=== PATIENT | male | born 1985 | race Two or more races ===

== ENCOUNTER 2022-10-18 16:45 | Emergency (ER) | payer OTHER ==
[~2022-10-18] VITALS: Ht 182.9 cm; Wt 74.4 kg
--- NOTE | 2022-10-18 20:30 | NUR ---
TO ER BED 10
--- NOTE | 2022-10-18 20:30 | NUR ---
LISA FOR MID-UMBICAL NONRAD ABD PAIN SINCE 0900 WITH ONE EPISODE OF VOMITING AT 1430. PT RATES PAIN 7/10 INTERMITTENT AND SHARP. -DYSURIA/HEMATURIA. PT AWAKE AND ALERT X4 BREATHING UNLBAORED HOOKED TO MONITOR AND CHANGED INOT GOWN. V/S WNL.
--- NOTE | 2022-10-18 20:32 | NUR ---
20G IV STARTED AT . BLOOD DRAWN AND SENT TO LAB
[2022-10-18] MEDS ORDERED: ONDANSETRON HCL/PF 4 MG/2 ML VIAL ONE (20:52)
[2022-10-18] MEDS ORDERED: MORPHINE SULFATE INJ 4 MG/ML DISP.SYRIN ONE (20:53)
[2022-10-18] MEDS: ONDANSETRON HCL/PF - ER 4 MG/2 ML VIAL IV ONE (20:58)
[2022-10-18] MEDS: IV NS 0.9% 1,000 ML IV ONE (20:58)
[2022-10-18] MEDS: MORPHINE SULFATE INJ 2 MG/ML DISP.SYRIN IV ONE (20:58)
--- NOTE | 2022-10-18 20:59 | NUR ---
URINE SENT TO LAB
--- NOTE | 2022-10-18 20:59 | NUR ---
PT TAKEN TO CT
[2022-10-18 21:01] LABS: BASOPHILS % (AUTO) 0.2 % (0.0-2.0); HEMATOCRIT 45 % (39-51); HEMOGLOBIN 15.3 g/dL (13.5-17.5); LYMPHOCYTES # (AUTO) 1.1 K/uL (0.8-4.8); MEAN CORPUSCULAR HGB CONC 34 g/dl (31.0-36.0); MEAN CORPUSCULAR VOLUME 95 fL (80-96); MONOCYTES # (AUTO) 1.2 K/uL (0.1-1.30); MONOCYTES % (AUTO) 6.4 % (2.0-12.0); NEUTROPHILS # (AUTO) 15.9 K/uL (1.8-8.9); NEUTROPHILS % (AUTO) 87.4 % (43.0-81.0); PLATELET COUNT (AUTO) 304 K/uL (150-450); WHITE BLOOD COUNT (AUTO) 18.2 K/uL (4.3-11.0)
[2022-10-18 21:25] LABS: ALBUMIN 4.3 g/dL (3.4-5.0); BILIRUBIN,DIRECT 0.1 mg/dL (0.0-0.2); BILIRUBIN,TOTAL 0.6 mg/dL (0.2-1.0); CALCIUM, SERUM 8.9 mg/dL (8.5-10.1); TOTAL PROTEIN, SERUM 7.7 g/dL (6.4-8.2)
[2022-10-18 22:03] LABS: BILIRUBIN,URINE NEGATIVE (NEGATIVE); COLOR,URINE YELLOW (YELLOW); LEUKOCYTE ESTERASE ,URINE NEGATIVE (NEGATIVE); NITRITE, URINE POSITIVE (NEGATIVE); PH,URINE 5.5 (5.0-8.0); PROTEIN,URINE NEGATIVE (NEGATIVE); UGLUCOSE NEGATIVE (NEGATIVE)
[2022-10-18 22:34] LABS: BACTERIA,URINE RARE /HPF (None Seen); MUCUS,URINE Few /LPF (None Seen); RBC,URINE 0-2 /HPF (0-2); SQUAMOUS EPITHELIAL CELL,UR 0-2 /HPF (None Seen); WBC,URINE 0-2 /HPF (0-3)
[2022-10-18] MEDS ORDERED: KETOROLAC TROMETHAMINE 15 MG/ML VIAL ONE (23:01)
[2022-10-18] MEDS: KETOROLAC TROMETHAMINE INJ 30 MG/ML VIAL IV ONE (23:07)
[2022-10-18] MEDS ORDERED: IBUP-1957 PO (23:18)
[2022-10-18] MEDS ORDERED: AZIT500T4 PO (23:18)
[2022-10-18] MEDS ORDERED: AZITHROMYCIN 250 MG TABLET ONE (23:22)
[2022-10-18] MEDS: AZITHROMYCIN 250 MG TABLET PO ONE (23:26)
--- NOTE | 2022-10-18 23:26 | NUR ---
Patient discharged to home in stable condition. Written and verbal after care instructions given. Patient verbalizes understanding of instruction.IV removed. Catheter intact and site benign. Pressure and 4x4 applied to site. No bleeding noted.
[2022-10-18 23:29] VITALS: BP 120/72
[2022-10-28] MEDS ORDERED: ONDA4TAB5 PO (14:23)
[2022-10-28] MEDS ORDERED: HYDR-3972 PO (14:23)
[2022-10-28] MEDS ORDERED: AMOX-430 PO (14:23)
== END 2022-10-18 23:38 | disposition home or self-care (01) ==
LOC: ER 16:49
DX: K52.9 Noninfective gastroenteritis and colitis, unspecified (principal); R10.31 Right lower quadrant pain; Z79.899 Other long term (current) drug therapy
CPT/HCPCS: 99284; 74176; 96374; 96361; 96375; 85025; 80048; 87086; 83690; 80076; 81001; 36415; J2270; J2405; J7030; J1885

== ENCOUNTER 2022-10-20 21:36 | Inpatient (IN) | payer OTHER ==
[~2022-10-20] VITALS: Ht 182.9 cm; Wt 75.7 kg
[~2022-10-20 21:36] MED LIST: AZIT500T4 PO; IBUP-1957 PO
--- NOTE | 2022-10-20 23:49 | NUR ---
BIBS C/O ABD PAIN. WAS DIAGNOSED WITH COLITIS ON 10/18 AND FINISGHED HIS COURSE OF ABX WITH NO IMPROVEMENT. RATES PAIN 07/31. -N/V -BLOODY STOOL. STATES HE IS USUALLY CONSTIPATED BUT WHEN HE IS ABLE TO GO HIS STOOLS HAVE BEEN LOOSE. PT AFEBRILE AHND V/S WNL.
[2022-10-21] MEDS ORDERED: IV NS 0.9% 1,000 ML BAG IV ONE
[2022-10-21] MEDS ORDERED: ONDANSETRON HCL/PF 4 MG/2 ML VIAL IVP ONE
[2022-10-21] MEDS ORDERED: MORPHINE SULFATE INJ 4 MG/ML DISP.SYRIN ONE ×4 (00:09→09:49)
[2022-10-21] MEDS ORDERED: ONDANSETRON HCL/PF 4 MG/2 ML VIAL ONE (00:09)
--- NOTE | 2022-10-21 00:14 | NUR ---
20G IV STARTED AT . BLOOD DRAWN AND SENT TO LAB
[2022-10-21 00:15] LABS: BASOPHILS % (AUTO) 0.2 % (0.0-2.0); EOSINOPHILS % (AUTO) 0.2 % (0.0-6.0); HEMATOCRIT 41 % (39-51); HEMOGLOBIN 13.8 g/dL (13.5-17.5); LYMPHOCYTES # (AUTO) 1.1 K/uL (0.8-4.8); LYMPHOCYTES % (AUTO) 5.4 % (20.0-44.0); MEAN CORPUSCULAR HGB CONC 34 g/dl (31.0-36.0); MEAN CORPUSCULAR VOLUME 95 fL (80-96); MONOCYTES # (AUTO) 2.6 K/uL (0.1-1.30); MONOCYTES % (AUTO) 12.6 % (2.0-12.0); NEUTROPHILS # (AUTO) 16.7 K/uL (1.8-8.9); NEUTROPHILS % (AUTO) 81.6 % (43.0-81.0); PLATELET COUNT (AUTO) 243 K/uL (150-450); RED BLOOD CELL COUNT(AUTO) 4.27 MIL/uL (4.5-6.0); WHITE BLOOD COUNT (AUTO) 20.5 K/uL (4.3-11.0)
[2022-10-21] MEDS ORDERED: PIPERACILLIN /TAZOBACTAM 3.375 G in IV D5W 50 ML IV ONE (00:30)
[2022-10-21] MEDS ORDERED: CT SWABBABLE VALVE TRANS SET 1 EA INFUS.SET MC ONE (00:43)
[2022-10-21] MEDS ORDERED: IOHEXOL-300 100 ML VIAL IV ONE (00:43)
[2022-10-21] MEDS ORDERED: IV NS 0.9% 250 ML IV ONE (00:43)
[2022-10-21 00:44] LABS: CALCIUM, SERUM 8.7 mg/dL (8.5-10.1); CREATININE 1.1 mg/dL (0.6-1.3); POTASSIUM 3.6 mmol/L (3.5-5.1)
--- NOTE | 2022-10-21 00:47 | NUR ---
PT TAKEN TO CT VIA ROBBIE
[2022-10-21 01:06] LABS: ALBUMIN 3.6 g/dL (3.4-5.0); BILIRUBIN,DIRECT 0.2 mg/dL (0.0-0.2); BILIRUBIN,TOTAL 0.6 mg/dL (0.2-1.0); TOTAL PROTEIN, SERUM 7.3 g/dL (6.4-8.2)
[2022-10-21] MEDS ORDERED: PIPERACILLIN /TAZOBACTAM 3.375 G VIAL IV ONE (01:19)
[2022-10-21] MEDS ORDERED: MORPHINE SULFATE INJ 2 MG/ML DISP.SYRIN IV ONE ×2 (01:30)
[2022-10-21] MEDS ORDERED: FLAGYL/NS RTU 500 MG/100 ML PIGGYBACK IV ONE (02:30)
--- NOTE | 2022-10-21 02:34 | NUR ---
LAB CONFIRMED URINE SAMPLE RECIEVED
[2022-10-21] MEDS ORDERED: METRONIDAZOLE 500MG/ NS 100ML 100 ML IV ONE (02:38)
[2022-10-21] MEDS ORDERED: MAG HYDROX/AL HYDROX/SIMETH 30 ML UDC PO PRN ×2 (04:00→11:30)
[2022-10-21] MEDS ORDERED: Z GUARD REMEDY 4 OZ OINT TP PRN ×2 (04:00→11:30)
[2022-10-21] MEDS ORDERED: ZOLPIDEM TARTRATE 5 MG TABLET PO PRN (04:00)
[2022-10-21] MEDS ORDERED: ACETAMINOPHEN 325 MG TABLET PO PRN ×2 (04:00→11:30)
--- NOTE | 2022-10-21 05:18 | NUR ---
CLERICAL ASSIGNER AT PT BESIDE
[2022-10-21] MEDS: MORPHINE SULFATE INJ 2 MG/ML DISP.SYRIN IV PRN ×4 (05:29→21:00)
[2022-10-21 06:44] LABS: CALCIUM, SERUM 7.8 mg/dL (8.5-10.1); CREATININE 1.1 mg/dL (0.6-1.3); MAGNESIUM 1.9 mg/dL (1.8-2.4); POTASSIUM 3.5 mmol/L (3.5-5.1)
--- NOTE | 2022-10-21 07:18 | NUR ---
REPORT GIVEN TO KVNG ESPINAL
[2022-10-21 07:35] LABS: BASOPHILS % (AUTO) 0.1 % (0.0-2.0); EOSINOPHILS % (AUTO) 0.2 % (0.0-6.0); HEMATOCRIT 38 % (39-51); HEMOGLOBIN 13.2 g/dL (13.5-17.5); LYMPHOCYTES % (AUTO) 6.2 % (20.0-44.0); MEAN CORPUSCULAR HGB CONC 35 g/dl (31.0-36.0); MEAN CORPUSCULAR VOLUME 95 fL (80-96); MONOCYTES # (AUTO) 2.2 K/uL (0.1-1.30); MONOCYTES % (AUTO) 13.2 % (2.0-12.0); NEUTROPHILS # (AUTO) 13.2 K/uL (1.8-8.9); NEUTROPHILS % (AUTO) 80.3 % (43.0-81.0); PLATELET COUNT (AUTO) 238 K/uL (150-450); RED BLOOD CELL COUNT(AUTO) 3.95 MIL/uL (4.5-6.0); WHITE BLOOD COUNT (AUTO) 16.4 K/uL (4.3-11.0)
--- NOTE | 2022-10-21 08:05 | NUR ---
Radha gaona in [facility]IN - 10/21/22 at 0949 by VASILIY REPORT GIVEN TO HOLLY MARCIAL
--- NOTE | 2022-10-21 08:38 | NUR ---
CORRECTION : NO AVAILABLE BED YET *
[2022-10-21] MEDS ORDERED: PIPERACILLIN /TAZOBACTAM 4.5 G in IV D5W 50 ML IV SCH (09:00)
[2022-10-21] MEDS ORDERED: PANTOPRAZOLE 40 MG VIAL ONE (09:05)
[2022-10-21] MEDS: PANTOPRAZOLE 40 MG VIAL IV SCH (09:12)
[2022-10-21] MEDS: PIPERACILLIN /TAZOBACTAM 3.375 G in IV D5W 100 ML IV SCH ×2 (10:25→17:04)
--- NOTE | 2022-10-21 11:15 | NUR ---
322-2 ASSIGNED BED CHANGED
--- NOTE | 2022-10-21 11:19 | NUR ---
REPORT GIVEN TO MIKE CALDERON
[2022-10-21] MEDS ORDERED: MORPHINE SULFATE INJ 2 MG/ML DISP.SYRIN IV PRN (11:30)
[2022-10-21] MEDS ORDERED: IV NS 0.9% 1,000 ML IV PRN (11:30)
[2022-10-21] MEDS ORDERED: MAGNESIUM HYDROXIDE 30 ML UDC PO PRN (11:30)
[2022-10-21] MEDS ORDERED: ONDANSETRON HCL/PF 4 MG/2 ML VIAL IVP PRN (11:30)
--- NOTE | 2022-10-21 11:55 | NUR ---
MS MANAGER BENEFIT NOTES: PT TRANSPORTED BY ER STAFF VIA GURNEY. PT ABLE TO SCOOT TO BED. PT IS AWAKE, A/0X4, ABLE TO MAKE NEEDS KNOWN, PARTNER AT BEDSIDE. NO S/S OF RESPIRATORY DISTRESS ON RA, BREATHING EVEN AND UNLABORED. VITALS WNL, PT C/O PAIN 04/30, WILL MEDICATE ORDERED. IV ACCESS AT R FA #20, SL, INTACT. NO SKIN ISSUES NOTED. ORIENTED TO STAFF AND UNIT, GIVEN CALL LIGHT AND ENCOURAGED TO CALL FOR ASSISTANCE. SAFETY MEASURES IN PLACE, CALL LIGHT, TABLE AND URINAL WITHIN REACH, WILL CONT WITH PLAN OF CARE DURING SHIFT.
--- NOTE | 2022-10-21 12:00 | NUR ---
PATIENT MOVED TO INPATIENT ROOM SAFELY
[2022-10-21] MEDS: HYDROCODONE/APAP 5/325MG TABLET PO PRN ×2 (12:07→18:44)
[2022-10-21] MEDS: IV NS 0.9% 1,000 ML IV PRN (12:23)
[2022-10-21 16:00] VITALS: BP 110/56
[2022-10-21] MEDS ORDERED: NA PHOS,M-B/NA PHOS,DI-BA 1 EA ENEMA RC PRN (19:30)
[2022-10-21 20:00] VITALS: BP 105/56
--- NOTE | 2022-10-21 20:08 | NUR ---
RN OPENING NOTE PATIENT AWAKE IN HIS ROOM W/ PARTNER AT BEDSIDE. A/OX4. NO S/S OF DISTRESS, BREATHING WITHOUT DIFFICULTY ON ROOM AIR. RFA #20 INTACT AND PATENT W/ NS 100ML/HR. SAFETY MEASURES IN PLACE: BED LOCKED AND AT LOWEST POSITION, RAILS UP X2, CALL [place] WITHIN REACH. WILL CONTINUE TO MONITOR PATIENT.
--- NOTE | 2022-10-21 20:09 | NUR ---
MS RN CLOSING NOTESl PT IS AWAKE, A/0X4, ABLE TO MAKE NEEDS KNOWN, PARTNER AT BEDSIDE. NO S/S OF RESPIRATORY DISTRESS ON RA, BREATHING EVEN AND UNLABORED. IV ACCESS AT R FA #20, RUNNING NS @ 100ML/HR. ALL NEEDS MET, KEPT PT COMFORTABLE, PAIN MANAGEMENT ADMINISTERED NEEDED. GIVEN CALL LIGHT AND ENCOURAGED TO CALL FOR ASSISTANCE. SAFETY MEASURES IN PLACE, CALL LIGHT, TABLE AND URINAL WITHIN REACH, ENDORSED TO PM SHIFT.
[2022-10-22] MEDS: MORPHINE SULFATE INJ 2 MG/ML DISP.SYRIN IV PRN ×4 (01:02→19:22)
[2022-10-22] MEDS: PIPERACILLIN /TAZOBACTAM 3.375 G in IV D5W 100 ML IV SCH ×3 (02:33→19:21)
[2022-10-22] MEDS: IV NS 0.9% 1,000 ML IV PRN (04:31)
[2022-10-22 06:03] LABS: BASOPHILS % (AUTO) 0.2 % (0.0-2.0); EOSINOPHILS % (AUTO) 1.4 % (0.0-6.0); HEMATOCRIT 36 % (39-51); HEMOGLOBIN 12.5 g/dL (13.5-17.5); LYMPHOCYTES # (AUTO) 1.5 K/uL (0.8-4.8); LYMPHOCYTES % (AUTO) 9.5 % (20.0-44.0); MEAN CORPUSCULAR HGB CONC 34 g/dl (31.0-36.0); MEAN CORPUSCULAR VOLUME 95 fL (80-96); MONOCYTES # (AUTO) 2.2 K/uL (0.1-1.30); MONOCYTES % (AUTO) 13.5 % (2.0-12.0); NEUTROPHILS # (AUTO) 12.1 K/uL (1.8-8.9); NEUTROPHILS % (AUTO) 75.4 % (43.0-81.0); PLATELET COUNT (AUTO) 237 K/uL (150-450); RED BLOOD CELL COUNT(AUTO) 3.84 MIL/uL (4.5-6.0)
[2022-10-22 06:40] LABS: CALCIUM, SERUM 7.8 mg/dL (8.5-10.1); MAGNESIUM 1.8 mg/dL (1.8-2.4); PHOSPHORUS 3.2 mg/dL (2.5-4.9); POTASSIUM 3.4 mmol/L (3.5-5.1)
--- NOTE | 2022-10-22 06:54 | NUR ---
RN CLOSING NOTE PATIENT AWAKE IN BED. A/O X 4. NO S/S OF DISTRESS, BREATHING WITHOUT DIFFICULTY ON ROOM AIR. RFA #20 INTACT AND PATENT W/ NS 100ML/HR. SAFETY MEASURES IN PLACE: BED LOCKED AND AT LOWEST POSITION, RAILS UP X2, CALL [place] WITHIN REACH. WILL ENDORSE TO NEXT SHIFT FOR AGGIE.
[2022-10-22 08:00] VITALS: BP 105/65
[2022-10-22] MEDS: PANTOPRAZOLE 40 MG VIAL IV SCH (08:44)
[2022-10-22] MEDS: HYDROCODONE/APAP 5/325MG TABLET PO PRN (08:53)
[2022-10-22] MEDS ORDERED: NA PHOS,M-B/NA PHOS,DI-BA 1 EA ENEMA RC PRN (10:30)
--- NOTE | 2022-10-22 10:39 | NUR ---
RN NOTES AM RECEIVED PATIENT ASLEEP IN BED, EASY TO AROUSE, A/OX4, NO SOB, NO S/S OF DISTRESS, BREATHING WITHOUT DIFFICULTY ON ROOM AIR. SAT AT 99 %, IV SITE INTACT, FLUSHING WELL, RFA #20 INTACT AND PATENT W/ NS 100ML/HR. SAFETY MEASURES IN PLACE & BED WHEELS ARE ALL LOCKED BED AT LOWEST POSITION, RAILS UP X2, CALL LIGHT IS WITHIN REACH. FLEET ENEMA GIVEN PER MD ORDER , BM X2 ONE WAS EXTRA LARGE, SECOND ONE WAS SMALL FORMED BROWN FOUL ODOR NOTED, DOUBLE ORDER OF ENEMA NOTED ON EMAR THERE FORE ONE ORDER WAS CANCELLED THE ORDER WAS NOT FOR TWO TO BE GIVEN, WILL CONTINUE TO MONITOR PATIENT.
--- NOTE | 2022-10-22 11:04 | NUR ---
RN NOTES PT TRANSFERED FOR SURGERY AT THIS TIME SAFE TRANSFER FROM BED IN [facility] TO SURGICAL TEAM ROOM FOR SCHEDULED PROCEDURE , ALL DOCUMENTS FILLED OUT AND ALL UPDATED VS GIVEN TO SURGICAL TRANSPORT TEAM AT THIS TIME.
[2022-10-22] MEDS ORDERED: MIDAZOLAM HCL 2 MG/2ML VIAL ONE (11:12)
[2022-10-22] MEDS ORDERED: FENTANYL PF 100MCG/2ML AMPUL ONE (11:43)
[2022-10-22] MEDS ORDERED: POTASSIUM CHLORIDE 20 MEQ TAB.PRT.SR PO ONE (12:00)
--- NOTE | 2022-10-22 15:02 | NUR ---
RN POST SURGERY NOTES PT C/O PAIN, COMMON AFTER THIS TYPE OF PROCEDURE AND NORMAL, ENCOURAGED TO PASS THE GAS, REPOSITIONED PT SEVERAL TIMES AND EDUCATED ON GUIDED IMAGERY TO TRY TO RELIEVE PAIN AND ANXIETY, PT C/O PAIN LEVEL OF 10 OUT OF 0-10 SCALE AND GIVEN MORPHINE TO HELP, EFFECTIVE, FIANCE AT BEDSIDE, MD ORDERED A CT AB / PELVIC EXAM AND PT ENCOURAGED TO ALLOW PROCESS TO RULE OUT ANY OTHER UNKNOWN FACTORS CAUSING SEVERE AB PAIN, PT UNABLE TO RELIEVE THE GAS AT THIS TIME - ENCOURAGED TO RELAX AND LET THE GAS PASS TO HELP RELEIVE THE TENSION AND TIGHTNESS IN THE AB REGION.
--- NOTE | 2022-10-22 15:36 | NUR ---
RN NOTES PT C/O SEVERE AB PAIN, PRIMARY MD CONTACTED AND GI MD DR. DIAZ - ORDER FOR STAT CT OF AB AND PELVIC AREA TO RULE OUT ANY ISSUES, RESULTS SHOW SITE HAS PERFORATED AND SURGICAL EVAL IS ORDERED STAT FOR SURGICAL DECISIONS TO BE MADE, PT NOTIFIED , VS BEING MONITORED CLOSELY AT THIS TIME VITAL SIGNS ARE THE FOLLOWING: TEMP AXILLARY LEFT ARM 99.1, B/P = 127/68, PULSE - 79 , OXYGEN 98% ROOM AIR, PT TO BE NPO AT THIS TIME UNTIL FURTHER ORDERS HOLDING ALL PO MEDS AND OTHER AT THIS TIME AND PLACING THAT ORDER INTO ORDER SCREEN AT THIS TIME.
--- NOTE | 2022-10-22 15:49 | NUR ---
abnormal ct abdomen result reported to Dr. Sevilla, he stated that Dr. falcon is informed and will evaluate pt.
--- NOTE | 2022-10-22 16:17 | NUR ---
RN NOTES MD LUCERO AT BED SIDE FOR EDUCATION AND EVALUATION GIVING PT OPTION ONE AND OPTION TWO. OPTION ONE IS SURGERY , OPTION TWO IS MEDICINE AND TREATMENT - WITH CLOSE OBSERVATION PT IS CHOOSING OPTION TWO AT THIS TIME, EDUCATED ON PROS AND CONS OF BOTH OPTIONS, VS = B/P - 122/71, PULSE - 84, TEMP = 97.9, RR = 18 , OXYGEN = 98% ROOM AIR, PT MADE COMFORTABLE, FAMILY AT BED SIDE, BLOOD CULTURES BEING DRAWN NOW , NS RUNNING IN RFA SITE IS PATENT FLUSING INTACT. WILL CONTINUE TO MONITOR CLOSELY
--- NOTE | 2022-10-22 20:03 | NUR ---
RN OPENING NOTE PATIENT AWAKE IN BED W/ PARTNER AT BEDSIDE. A/OX4. NO S/S OF DISTRESS, BREATHING WITHOUT DIFFICULTY ON ROOM AIR. RFA #20 INTACT AND PATENT W/ NS 100ML/HR. SAFETY MEASURES IN PLACE: BED LOCKED AND AT LOWEST POSITION, RAILS UP X2, CALL [place] WITHIN REACH. WILL CONTINUE TO MONITOR PATIENT.
[2022-10-23] MEDS: MORPHINE SULFATE INJ 2 MG/ML DISP.SYRIN IV PRN ×4 (00:59→15:20)
[2022-10-23] MEDS: PIPERACILLIN /TAZOBACTAM 3.375 G in IV D5W 100 ML IV SCH ×3 (02:37→17:14)
[2022-10-23 06:49] LABS: BASOPHILS % (AUTO) 0.2 % (0.0-2.0); EOSINOPHILS % (AUTO) 1.4 % (0.0-6.0); HEMATOCRIT 37 % (39-51); HEMOGLOBIN 12.8 g/dL (13.5-17.5); LYMPHOCYTES # (AUTO) 1.2 K/uL (0.8-4.8); LYMPHOCYTES % (AUTO) 9.6 % (20.0-44.0); MEAN CORPUSCULAR HGB CONC 34 g/dl (31.0-36.0); MEAN CORPUSCULAR VOLUME 95 fL (80-96); MONOCYTES # (AUTO) 1.7 K/uL (0.1-1.30); MONOCYTES % (AUTO) 13.6 % (2.0-12.0); NEUTROPHILS # (AUTO) 9.3 K/uL (1.8-8.9); NEUTROPHILS % (AUTO) 75.2 % (43.0-81.0); PLATELET COUNT (AUTO) 256 K/uL (150-450); RED BLOOD CELL COUNT(AUTO) 3.94 MIL/uL (4.5-6.0); WHITE BLOOD COUNT (AUTO) 12.4 K/uL (4.3-11.0)
--- NOTE | 2022-10-23 06:54 | NUR ---
RN CLOSING NOTE PATIENT ASLEEP IN BED. A/OX4. NO S/S OF DISTRESS, BREATHING WITHOUT DIFFICULTY ON 2L NC FOR COMFORT. RFA #20 INTACT AND PATENT W/ NS 125ML/HR. SAFETY MEASURES IN PLACE: BED LOCKED AND AT LOWEST POSITION, RAILS UP X2, CALL [place] WITHIN REACH. WILL ENDORSE TO NEXT SHIFT FOR AGGIE.
[2022-10-23 07:14] LABS: CALCIUM, SERUM 8.1 mg/dL (8.5-10.1); CREATININE 0.9 mg/dL (0.6-1.3); MAGNESIUM 2.1 mg/dL (1.8-2.4); POTASSIUM 3.6 mmol/L (3.5-5.1)
--- NOTE | 2022-10-23 07:30 | NUR ---
MS RN AM NOTE PATIENT ASLEEP, RESPONDS TO NAME AND TOUCH. A/OX4. NO S/S OF DISTRESS, ON 2L O2 NEEDED, O2 SAT 99%. RESPIRATION UNLABORED, DENIES SOB. S/P SIGMOIDOSCOPY 11/01/2022, C/O 7-06/30 PAIN. ON PAIN MANAGEMENT. RFA #20 INTACT AND PATENT W/ NS 100ML/HR. NPO FOR NOW. SAFETY MEASURES IN PLACE: BED LOCKED AND AT LOWEST POSITION, RAILS UP X2, CALL [place] WITHIN REACH. WILL CONTINUE TO MONITOR PATIENT.
[2022-10-23 08:00] VITALS: BP 104/60
[2022-10-23] MEDS: IV NS 0.9% 1,000 ML IV PRN (08:40)
[2022-10-23] MEDS: PANTOPRAZOLE 40 MG VIAL IV SCH (08:42)
--- NOTE | 2022-10-23 09:30 | NUR ---
RN NOTES DUE MEDS GIVEN
[2022-10-23] MEDS: METRONIDAZOLE 500MG/ NS 100ML 500 MG in PREMIX 1 EA IV SCH ×3 (12:14→23:39)
[2022-10-23 16:00] VITALS: BP 100/56
[2022-10-23] MEDS ORDERED: MORPHINE SULFATE INJ 2 MG/ML DISP.SYRIN IV ONE (18:00)
--- NOTE | 2022-10-23 18:00 | NUR ---
RN NOTES PATIENT FOUND COMING FROM BATHROOM,SUDDENLY WAS IN SEVERE PAIN. SCREAMING. PATIENT NOT DUE FOR NEXT PAIN MEDICATION IN THE NEXT [address] KEE IF WE COULD GIVE A ONE TIME MORPHINE SULFATE 4 MG. OKAYED. PAIN MEDICATION GIVEN. VITAL SIGNS TAKEN - HEART MONITOR READS NSR, HR 72. VS WNL
[2022-10-23] MEDS ORDERED: MORPHINE SULFATE INJ 4 MG/ML DISP.SYRIN IV ONE (18:04)
--- NOTE | 2022-10-23 18:19 | NUR ---
RN NOTES DR. LUCERO NOTIFIED. PER PATIENT IS HE COULD BE SEEN TODAY. HE WAS DOING FINE ALL DAY BUT NOW IN SEVERE PAIN. ADMINISTERED MORPHINE SULFATE WITH HELP. WAITING FOR RESPONSE.
--- NOTE | 2022-10-23 18:45 | NUR ---
RN NOTES CALLED [facility] EXCHANGE [phone] KEE FOR PATIENT'S SEVERE PAIN.
--- NOTE | 2022-10-23 19:02 | NUR ---
RN NOTES PER DR. LUCERO, HE IS ON THE WAY.
--- NOTE | 2022-10-23 19:20 | NUR ---
MS RN NOTES RECEIVED PATIENT AWAKE IN BED. PATIENT IS A/O TIMES 4. COMPLAINS OF SEVERE PAIN. WILL ADMINISTER PAIN MEDICATION YUAN. NO SOB NOTED. IV ACCESS ON THE RFA G # 20 INTACT AND PATENT. RUNNING NS AT 100 ML/HR. A FEMALE PRESENT AT THE BED SIDE. ABLE TO MAKE NEEDS KNOWN. ALL SAFETY MEASURES IN PLACE. BED LOCKED IN THE LOWEST POSITION. CALL LIGHT AND TABLE IN EASY REACH. SIDE RAILS UP TIMES 2. WILL CONTINUE TO MONITOR CLOSELY.
[2022-10-23] MEDS: HYDROMORPHONE INJ 2 MG/ML DISP.SYRIN IV PRN ×2 (19:25→22:41)
--- NOTE | 2022-10-23 19:25 | NUR ---
MS RN NOTES PRN DILAUDID 1 ML GIVEN AT 1925 FOR SEVERE 9/10 ABDOMINAL PAIN. WILL REASSESS THE PAIN IN 30 MIN.
--- NOTE | 2022-10-23 19:25 | NUR ---
MS RN CLOSING NOTE PATIENT RESTING/CRYING,MOANING. STILL IN PAIN 08/30. WILL ADMINISTER NEW ORDER DILAUDID 2 MG IV. A/OX4. NO S/S OF DISTRESS, ON 2L O2 NEEDED, O2 SAT 99%. RESPIRATION UNLABORED, DENIES SOB. S/P SIGMOIDOSCOPY 11/01/2022, ON PAIN MANAGEMENT. RFA #20 INTACT AND PATENT W/ NS 100ML/HR. NPO FOR NOW. SAFETY MEASURES IN PLACE: BED LOCKED AND AT LOWEST POSITION, RAILS UP X2, CALL [place] WITHIN REACH. PM CARE DONE EARLIER. WILL ENDORSE TO NEXT SHIFT FOR AGGIE. DR. KEE AND DR. ALEKSANDR LUCERO NOTIFIED OF CURRENT SEVERE PAIN. DR. LUCERO TO SEE THE PATIENT LATER.
[2022-10-23 20:00] VITALS: BP 103/66
[2022-10-23] MEDS: ONDANSETRON HCL/PF 4 MG/2 ML VIAL IVP PRN (23:18)
[2022-10-24] VITALS: BP 109/64
[2022-10-24] MEDS: PIPERACILLIN /TAZOBACTAM 3.375 G in IV D5W 100 ML IV SCH ×3 (01:53→17:14)
[2022-10-24] MEDS: IV NS 0.9% 1,000 ML IV PRN (02:47)
[2022-10-24 04:00] VITALS: BP 109/63
[2022-10-24] MEDS: HYDROMORPHONE INJ 2 MG/ML DISP.SYRIN IV PRN ×4 (06:07→17:50)
[2022-10-24 06:11] LABS: EOSINOPHILS % (AUTO) 0.1 % (0.0-6.0); HEMATOCRIT 40 % (39-51); HEMOGLOBIN 13.5 g/dL (13.5-17.5); LYMPHOCYTES # (AUTO) 0.8 K/uL (0.8-4.8); LYMPHOCYTES % (AUTO) 6.6 % (20.0-44.0); MEAN CORPUSCULAR HGB CONC 34 g/dl (31.0-36.0); MEAN CORPUSCULAR VOLUME 95 fL (80-96); MONOCYTES % (AUTO) 15.3 % (2.0-12.0); NEUTROPHILS # (AUTO) 9.9 K/uL (1.8-8.9); PLATELET COUNT (AUTO) 294 K/uL (150-450); WHITE BLOOD COUNT (AUTO) 12.8 K/uL (4.3-11.0)
[2022-10-24 06:12] LABS: CALCIUM, SERUM 7.8 mg/dL (8.5-10.1); CREATININE 0.9 mg/dL (0.6-1.3); MAGNESIUM 1.9 mg/dL (1.8-2.4); POTASSIUM 3.7 mmol/L (3.5-5.1)
[2022-10-24] MEDS: METRONIDAZOLE 500MG/ NS 100ML 500 MG in PREMIX 1 EA IV SCH ×3 (06:16→17:46)
--- NOTE | 2022-10-24 07:00 | NUR ---
MS RN CLOSING NOTES PATIENT AWAKE IN BED. PATIENT IS A/O TIMES 4. NO SOB NOTED. NO PAIN NOTED.IV ACCESS ON THE RFA G # 20 INTACT AND PATENT. RUNNING NS AT 100 ML/HR. ABLE TO MAKE NEEDS KNOWN. ALL SAFETY MEASURES IN PLACE. BED LOCKED IN THE LOWEST POSITION. CALL LIGHT AND TABLE IN EASY REACH. SIDE RAILS UP TIMES 2. WILL ENDORSE FOR AGGIE..
[2022-10-24 08:00] VITALS: BP 101/59
[2022-10-24] MEDS: PANTOPRAZOLE 40 MG VIAL IV SCH (09:12)
[2022-10-24] MEDS: ONDANSETRON HCL/PF 4 MG/2 ML VIAL IVP PRN ×2 (11:28→17:46)
[2022-10-24 16:00] VITALS: BP 117/74
--- NOTE | 2022-10-24 18:20 | NUR ---
END OF SHIFT SUMMARY PATIENT IS A/O X4. ABLE TO MAKE NEEDS KNOWN. ON 02 AT 2L VIA NM FOR SUPPORT, DENIES SOB. ZOFRAN GIVEN C/O N/V. PAIN MANAGED WELL WITH DILAUDID. CURRENTLY ON NPO STATUS. WARM PACKS APPLIED ON THE ABDOMEN. AMBULATION PROMOTED, ENCOURAGED USE OF ABDOMINAL BINDER. IV ACCESS ON R FA #20, NS RUNNING AT 100 ML/HR. ANTIBIOTICS INFUSED WELL. SAFETY MEASURES MAINTAINED. BED IN LOWEST POSITION, BRAKES LOCKED. SIDE RAILS UP X. CALL LIGHT WITHIN REACH. WILL ENDORSE CONTINUITY OF CARE TO ONCOMING SHIFT.
--- NOTE | 2022-10-24 19:30 | NUR ---
MS RN NOTES RECEIVED PATIENT AWAKE IN BED. PATIENT IS A/O TIMES 4. NO PAIN NOTED. NO SOB NOTED. IV ACCESS ON THE RFA G # 20 INTACT AND PATENT. RUNNING NS AT 100 ML/HR. GIRLFRIEND JAMIE PRESENT AT THE BED SIDE. OBSERVATIONAL TELE TARA SR 80.ABLE TO MAKE NEEDS KNOWN. ALL SAFETY MEASURES IN PLACE. BED LOCKED IN THE LOWEST POSITION. CALL LIGHT AND TABLE IN EASY REACH. SIDE RAILS UP TIMES 2. WILL CONTINUE TO MONITOR CLOSELY.
[2022-10-24 20:00] VITALS: BP 104/66
[2022-10-25] MEDS: METRONIDAZOLE 500MG/ NS 100ML 500 MG in PREMIX 1 EA IV SCH ×4 (00:07→17:19)
[2022-10-25] MEDS: PIPERACILLIN /TAZOBACTAM 3.375 G in IV D5W 100 ML IV SCH ×3 (01:49→17:20)
[2022-10-25] MEDS: ONDANSETRON HCL/PF 4 MG/2 ML VIAL IVP PRN (03:20)
--- NOTE | 2022-10-25 03:53 | NUR ---
RN NOTES PATIENT CHANGED HIS MIND , AND DECIDED TO HOLD OFF TO THE PAIN MEDICATION. RETURNED THE PAIN MEDICATION OF DILAUDID WITH MEAGHAN CALDERON NURSE WITNESS.
[2022-10-25] MEDS: IV NS 0.9% 1,000 ML IV PRN (04:55)
[2022-10-25 05:53] LABS: BASOPHILS % (AUTO) 0.3 % (0.0-2.0); EOSINOPHILS % (AUTO) 0.8 % (0.0-6.0); HEMATOCRIT 38 % (39-51); HEMOGLOBIN 12.7 g/dL (13.5-17.5); LYMPHOCYTES # (AUTO) 1.3 K/uL (0.8-4.8); LYMPHOCYTES % (AUTO) 10.7 % (20.0-44.0); MEAN CORPUSCULAR HGB CONC 34 g/dl (31.0-36.0); MEAN CORPUSCULAR VOLUME 95 fL (80-96); MONOCYTES # (AUTO) 1.8 K/uL (0.1-1.30); MONOCYTES % (AUTO) 15.2 % (2.0-12.0); NEUTROPHILS # (AUTO) 8.8 K/uL (1.8-8.9); PLATELET COUNT (AUTO) 309 K/uL (150-450); RED BLOOD CELL COUNT(AUTO) 3.94 MIL/uL (4.5-6.0)
[2022-10-25 06:14] LABS: POTASSIUM 3.4 mmol/L (3.5-5.1)
--- NOTE | 2022-10-25 06:41 | NUR ---
MS RN CLOSING NOTES PATIENT AWAKE IN BED. PATIENT IS A/O TIMES 4. NO PAIN NOTED. NO SOB NOTED. IV ACCESS ON THE RFA G # 20 INTACT AND PATENT. RUNNING NS AT 100 ML/HR. OBSERVATIONAL TELE TARA SR . ALL DUE MEDS GIVEN ORDERED.ABLE TO MAKE NEEDS KNOWN. ALL SAFETY MEASURES IN PLACE. BED LOCKED IN THE LOWEST POSITION. CALL LIGHT AND TABLE IN EASY REACH. SIDE RAILS UP TIMES 2. WILL ENDORSE FOR AGGIE.
--- NOTE | 2022-10-25 07:00 | NUR ---
MS RN OPENING NOTES: RECEIVED PT IN BED AWAKE, ALERT AND ORIENTED X 4 AND ABLE TO VERBALIZED NEEDS. NO SOB OR CARDIAC DISTRESS NOTED, ON ROOM AIR AND TOLERATED WELL. .IV ACCESS ON RFA GAUGE 20 PATENT,INTACT AND INFUSING NS 1L @100 ML/HR. KEPT RESTED AND COMFORTABLE. SAFETY MEASURES MAINTAINED: BED LOCKED AND IN LOWEST POSITION SIDE RAILS UP X 2 CALL LIGHT IN EASY REACH FOR HELP. WILL MONITOR ACCORDINGLY.
[2022-10-25] MEDS: IV D5/0.45 NACL 1,000 ML IV SCH ×2 (07:59→17:19)
[2022-10-25 08:00] VITALS: BP 108/66
[2022-10-25] MEDS: PANTOPRAZOLE 40 MG VIAL IV SCH (08:47)
--- NOTE | 2022-10-25 10:00 | NUR ---
KVNG NOTES: INSERTED IV ACCESS ON LEFT HAND GAUGE 20 PATENT, INTACT. RFA IV ACCESS DISLODGE. Addendum: 10/25/22 at 1019 by RICKEY HUTSON RN ERROR. IGNORE
[2022-10-25] MEDS: POTASSIUM CL. PREMIX PERIPHER. 50 ML IV SCH ×4 (10:01→13:16)
--- NOTE | 2022-10-25 12:30 | NUR ---
RN NOTES: PT REQUESTING IF HE CAN START LIQUIDS, VS STABLE. CHECKED FOR BOWEL SOUND HYPOACTIVE. INFORMED DR LUCERO ABOUT PT'S REQUEST, VS AND LABS. PENDING RESPONSE.
[2022-10-25 16:00] VITALS: BP 117/80
--- NOTE | 2022-10-25 18:46 | NUR ---
MS RN CLOSING NOTES: PATIENT IN BED, AWAKE, ALERT AND ORIENTED X 4 AND ABLE TO VERBALIZED NEEDS. NO SOB OR CARDIAC DISTRESS NOTED. NO PAIN OR NAUSEA/VOMITING NOTED. MAINTAINED ON NPO. RFA GAUGE 20 PATENT INTACT AND INFUSING D51/2 NS 1L @75ML/HR.SAFETY MEASURES MAINTAINED: BED LOCKED AND IN LOWEST POSITION SIDE RAILS UP X2. CALL LIGHT AND BED SIDE TABLE IN EASY REACH. WILL ENDORSE TO OFFICE MACHINE INSPECTOR RN FOR CONTINUITY OF CARE.
--- NOTE | 2022-10-25 18:55 | NUR ---
RN NOTES: RECEIVED ORDER FROM DR LUCERO,THAT PATIENT MAY START CLEAR LIQUIDS. ORDERS NOTED AND CARRIED OUT. INSTRUCTED THE PT AND RELATIVE THAT HE NEED TO DRINK SLOWLY AND REPORT FOR ANY NAUSEA AND VOMITING.
[2022-10-25 20:00] VITALS: BP 106/73
--- NOTE | 2022-10-25 20:02 | NUR ---
MS RN NOTES: RECEIVED PATIENT AWAKE IN BED ACCOMPANIED BY FAMILY, BED IN LOW POSITION CALL LIGHTS WITHIN REACH, NO COMPLAIN OF PAIN AND DISCOMFORT AT THIS TIME, ON ROOM AIR SATURATING WELL, PATIENT IS A/OX4 ABLE TO MAKE NEEDS KNWON ON BRP WITH SUPERVISION, IV LINE AT RFA#20 WITH ONGOING D5 1/2 NS@100ML/HR INFUSING WELL, PATIENT KEPT CLEAN AND DRY ALL NEEDS MET WILL CONTINUE TO MONITOR.
[2022-10-26] MEDS: METRONIDAZOLE 500MG/ NS 100ML 500 MG in PREMIX 1 EA IV SCH ×5 (00:09→18:45)
[2022-10-26] MEDS: PIPERACILLIN /TAZOBACTAM 3.375 G in IV D5W 100 ML IV SCH ×3 (01:55→18:00)
[2022-10-26] MEDS: IV D5/0.45 NACL 1,000 ML IV SCH ×3 (04:07→23:58)
[2022-10-26 06:14] LABS: BASOPHILS % (AUTO) 0.2 % (0.0-2.0); EOSINOPHILS % (AUTO) 2.5 % (0.0-6.0); HEMATOCRIT 36 % (39-51); HEMOGLOBIN 11.9 g/dL (13.5-17.5); LYMPHOCYTES # (AUTO) 1.5 K/uL (0.8-4.8); LYMPHOCYTES % (AUTO) 13.1 % (20.0-44.0); MEAN CORPUSCULAR HGB CONC 33 g/dl (31.0-36.0); MEAN CORPUSCULAR VOLUME 95 fL (80-96); MONOCYTES # (AUTO) 1.7 K/uL (0.1-1.30); MONOCYTES % (AUTO) 15.5 % (2.0-12.0); NEUTROPHILS # (AUTO) 7.6 K/uL (1.8-8.9); NEUTROPHILS % (AUTO) 68.7 % (43.0-81.0); PLATELET COUNT (AUTO) 326 K/uL (150-450); RED BLOOD CELL COUNT(AUTO) 3.76 MIL/uL (4.5-6.0); WHITE BLOOD COUNT (AUTO) 11.1 K/uL (4.3-11.0)
--- NOTE | 2022-10-26 06:35 | NUR ---
MS RN CLOSING NOTES: RECEIVED PATIENT AWAKE IN BED, BED IN LOW POSITION CALL LIGHTS WITHIN REACH, NO COMPLAIN OF PAIN AND DISCOMFORT AT THIS TIME, ON ROOM AIR SATURATING WELL, PATIENT IS A/OX4 ABLE TO MAKE NEEDS KNOWN, AMBULATORY WITH ASSIST, PATIENT KEPT CLEAN AND DRY ALL NEEDS MET ENDORSE TO INCOMING SHIFT.
[2022-10-26 07:03] LABS: CALCIUM, SERUM 7.8 mg/dL (8.5-10.1); CREATININE 1.1 mg/dL (0.6-1.3); POTASSIUM 3.2 mmol/L (3.5-5.1)
--- NOTE | 2022-10-26 07:38 | NUR ---
MS RN OPENING NOTES: RECEIVED PT AWAKE, A/0X4, ABLE TO MAKE NEEDS KNOWN. NO S/S OF RESPIRATORY DISTRESS ON RA, BREATHING EVEN AND UNLABORED. DENIES PAIN AT THIS TIME. IV ACCESS AT R FA #20, RUNNING D5 1/2NS @ 100ML/HR. SAFETY MEASURES IN PLACE, CALL LIGHT, TABLE AND URINAL WITHIN REACH, WILL CONTINUE WITH PLAN OF CARE DURING SHIFT.
[2022-10-26 08:00] VITALS: BP 184/93
[2022-10-26] MEDS: POTASSIUM CL. PREMIX PERIPHER. 50 ML IV SCH ×6 (08:24→14:43)
[2022-10-26] MEDS: PANTOPRAZOLE 40 MG/PACK PACK PO SCH (08:51)
[2022-10-26 15:28] LABS: EOSINOPHILS % (MANUAL) 6 % (0-4); LYMPHOCYTES % (MANUAL) 13 % (16-48); MONOCYTES % (MANUAL) 14 % (0-11.0); NEUTROPHILS % (MANUAL) 67 (42-76)
[2022-10-26 16:18] VITALS: BP 107/61
--- NOTE | 2022-10-26 16:20 | NUR ---
MS RN NOTES: RN CALLED PHARMACY TO CHANGE THE REST OF IV K+ TO POWDER PT'S IV ACCESS GOT INFILTRATED BEFORE COMPLETING ALL K+ INFUSION. IV ACCESS RE-INSERTION WAS DELAYED DUE TO WORKLOAD. 2 BAGS OF K+ RETURNED TO OMNICELL, 20MEQ K+ POWDER ADMINISTERED
[2022-10-26] MEDS ORDERED: POTASSIUM CHLORIDE 20 MEQ POWDER PACKET PO ONE (16:30)
--- NOTE | 2022-10-26 18:00 | NUR ---
MS RN NOTES: 1800 FLAGYL AND METRONIDAZOLE NOT GIVEN DUE TO IV INFILTRATION AND DELAY IN IV REINSERTION. ENDORSED TO PM RN, PER MD WILL ADJUST ADMINISTRATION SCHEDULE.
[2022-10-26 20:00] VITALS: BP 105/65
--- NOTE | 2022-10-26 20:16 | NUR ---
MS RN CLOSING NOTES: PT AWAKE, A/0X4, ABLE TO MAKE NEEDS KNOWN. NO S/S OF RESPIRATORY DISTRESS ON RA, BREATHING EVEN AND UNLABORED. DENIES PAIN AT THIS TIME. IV ACCESS RE-INSERTED TO R AC #20, RUNNING D5 1/2NS @ 100ML/HR. SAFETY MEASURES IN PLACE, CALL LIGHT, TABLE AND URINAL WITHIN REACH, ENDORSED TO PM SHIFT.
--- NOTE | 2022-10-26 20:33 | NUR ---
MS RN OPENING NOTES: RECEIVED PATIENT AWAKE IN BED ACCOMPANIED BY FAMILY, BED IN LOW POSITION, CALL LIGHTS WITHIN REACH, NO COMPLAIN OF PAIN AND DISCOMFORT AT THIS TIME, ON ROOM AIR SATURATING WELL, IV LINE AT RAC#20 WITH ONGOING D5 1/2 NSS@100 ML/HR INFUSING WELL, PATIENT IS A/OX4 AMBULATORY, ABLE TO MAKE NEEDS KNOWN, NO SOB WAS OBSERVED, PATIENT KEPT CLEAN AND DRY ALL NEEDS MET, WILL CONTINUE TO MONITOR.
[2022-10-26 22:08] VITALS: BP 105/65
--- NOTE | 2022-10-27 00:11 | NUR ---
RN NOTES: IV FLUID FOR 2358 NOT GIVEN 75% OF BAG REMAIN ONGOING IV HYDRATION
[2022-10-27] MEDS: METRONIDAZOLE 500MG/ NS 100ML 500 MG in PREMIX 1 EA IV SCH ×5 (00:13→23:14)
[2022-10-27] MEDS: PIPERACILLIN /TAZOBACTAM 3.375 G in IV D5W 100 ML IV SCH ×3 (02:01→18:26)
[2022-10-27 04:00] VITALS: BP 123/86
--- NOTE | 2022-10-27 06:48 | NUR ---
RN CLOSING NOTES: PATIENT AWAKE IN BED, BED IN LOW POSITION, CALL LIGHTS WITHIN REACH, NO COMPLAIN OF PAIN AND DISCOMFORT AT THIS TIME, ON ROOM AIR SATURATING WELL, PATIENT IS A/OX4 AMBULATORY, ABLE TO MAKE NEEDS KNOWN, KEPT CLEAN AND DRY ALL NEEDS MET, ENDORSE TO INCOMING SHIFT.
[2022-10-27] MEDS: PANTOPRAZOLE 40 MG/PACK PACK PO SCH (08:42)
[2022-10-27] MEDS: IV D5/0.45 NACL 1,000 ML IV SCH ×2 (09:59→19:59)
[2022-10-27] MEDS ORDERED: FLUCONAZOLE IN NS 100 MG in PREMIX 1 EA IV SCH ×2 (13:00)
--- NOTE | 2022-10-27 19:20 | NUR ---
RN opening notes Received Pt from morning nurse. Pt is alert and orientedX4. On room air. No SOB. No S/s of distress noted. Medsurg status. Ambulates with a steady gait. IV site at [facility] is infusing well abx. Safety precautions is maintained. Will continue to monitor.
--- NOTE | 2022-10-27 19:41 | NUR ---
MS RN OPENING NOTES: RECEIVED PT AWAKE, A/0X4, ABLE TO MAKE NEEDS KNOWN. NO S/S OF RESPIRATORY DISTRESS ON RA, BREATHING EVEN AND UNLABORED. DENIES PAIN AT THIS TIME. IV ACCESS AT R AC #20, RUNNING D5 1/2NS @ 100ML/HR. SAFETY MEASURES IN PLACE, CALL LIGHT, TABLE AND URINAL WITHIN REACH, WILL CONTINUE WITH PLAN OF CARE DURING SHIFT.
--- NOTE | 2022-10-27 19:44 | NUR ---
MS RN CLOSING NOTES: PT AWAKE, A/0X4, ABLE TO MAKE NEEDS KNOWN. PARTNER AT BEDSIDE. NO S/S OF RESPIRATORY DISTRESS ON RA, BREATHING EVEN AND UNLABORED. DENIES PAIN AT THIS TIME. IV ACCESS RE-INSERTED TO R AC #20, RUNNING D5 1/2NS @ 100ML/HR. SAFETY MEASURES IN PLACE, CALL LIGHT, TABLE AND URINAL WITHIN REACH, ENDORSED TO PM SHIFT.
[2022-10-27 20:00] VITALS: BP 115/69
[2022-10-28] MEDS: PIPERACILLIN /TAZOBACTAM 3.375 G in IV D5W 100 ML IV SCH ×3 (02:00→18:57)
[2022-10-28] MEDS: METRONIDAZOLE 500MG/ NS 100ML 500 MG in PREMIX 1 EA IV SCH (05:11)
[2022-10-28] MEDS: IV D5/0.45 NACL 1,000 ML IV SCH ×2 (05:13→15:58)
[2022-10-28 05:53] LABS: BASOPHILS % (AUTO) 0.2 % (0.0-2.0); EOSINOPHILS % (AUTO) 4.6 % (0.0-6.0); HEMATOCRIT 35 % (39-51); LYMPHOCYTES # (AUTO) 1.9 K/uL (0.8-4.8); LYMPHOCYTES % (AUTO) 18.9 % (20.0-44.0); MEAN CORPUSCULAR HGB CONC 35 g/dl (31.0-36.0); MEAN CORPUSCULAR VOLUME 94 fL (80-96); MONOCYTES # (AUTO) 1.2 K/uL (0.1-1.30); MONOCYTES % (AUTO) 12.5 % (2.0-12.0); NEUTROPHILS # (AUTO) 6.3 K/uL (1.8-8.9); NEUTROPHILS % (AUTO) 63.8 % (43.0-81.0); PLATELET COUNT (AUTO) 370 K/uL (150-450); RED BLOOD CELL COUNT(AUTO) 3.67 MIL/uL (4.5-6.0); WHITE BLOOD COUNT (AUTO) 9.8 K/uL (4.3-11.0)
[2022-10-28 06:39] LABS: CALCIUM, SERUM 7.7 mg/dL (8.5-10.1)
--- NOTE | 2022-10-28 06:55 | NUR ---
RN closing notes Pt is resting in bed comfortably. Pt is alert and orientedX4. On room air. No SOB. No S/s of distress noted. VS is stable. afebrile. IV site at [facility] is infusing well D5 1/2 NS @ 100 ml/hr. Routine meds were given as ordered. Kept Pt clean, dry and comfortable. Safety precautions is maintained. Fall precautions is maintained. Will endorse to am nurse for AGGIE.
--- NOTE | 2022-10-28 07:16 | NUR ---
MS RN OPENING NOTES: RECEIVED PT ASLEEP, EASILY ROUSED A/0X4, ABLE TO MAKE NEEDS KNOWN. NO S/S OF RESPIRATORY DISTRESS ON RA, BREATHING EVEN AND UNLABORED. DENIES PAIN AT THIS TIME. IV ACCESS AT R AC #20, RUNNING D5 1/2NS @ 100ML/HR. SAFETY MEASURES IN PLACE, CALL LIGHT, TABLE WITHIN REACH, WILL CONTINUE WITH PLAN OF CARE DURING SHIFT.
[2022-10-28 08:00] VITALS: BP 116/68
[2022-10-28] MEDS: PANTOPRAZOLE 40 MG TABLET.DR PO SCH (09:44)
[2022-10-28] MEDS: HYDROMORPHONE INJ 2 MG/ML DISP.SYRIN IV PRN ×4 (10:33→20:50)
[2022-10-28] MEDS: FLUCONAZOLE (100 MG) 100 MG TABLET PO SCH (11:16)
[2022-10-28] MEDS: METRONIDAZOLE 500 MG TABLET PO SCH ×3 (11:16→23:32)
[2022-10-28] MEDS: ONDANSETRON HCL/PF 4 MG/2 ML VIAL IVP PRN ×2 (12:32→16:29)
[2022-10-28] MEDS: POTASSIUM CHLORIDE 20 MEQ TAB.PRT.SR PO SCH ×3 (14:10→15:41)
[2022-10-28] MEDS ORDERED: AMOX-430 PO (14:23)
[2022-10-28] MEDS ORDERED: HYDR-3972 PO (14:23)
[2022-10-28] MEDS ORDERED: ONDA4TAB5 PO (14:23)
[2022-10-28] MEDS: MAGNESIUM HYDROXIDE 30 ML UDC PO PRN ×2 (14:59→18:57)
[2022-10-28 16:00] VITALS: BP 111/71
[2022-10-28] MEDS: HYDROCODONE/APAP 5/325MG TABLET PO PRN ×2 (17:46→22:28)
--- NOTE | 2022-10-28 19:15 | NUR ---
RN opening notes Pt is resting in bed comfortably accompanied by his girlfriend. Pt is alert and orientedX4. On room air. No SOB. No S/s of distress noted. IV site at RAC # 20 is clean, intact and infuising well abx. Safety precautions is maintained. Bed at low position, brakes locked, side rails upX2, hob elevated, urinal at the bedside and call light is within reach. Will continue to monitor.
[2022-10-28 20:00] VITALS: BP 111/62
--- NOTE | 2022-10-28 20:32 | NUR ---
MS RN CLOSING NOTES: PT AWAKEP, A/0X4, ABLE TO MAKE NEEDS KNOWN. NO S/S OF RESPIRATORY DISTRESS ON RA, BREATHING EVEN AND UNLABORED. C/O WORSENING ABD PAIN DESPITE PRN MEDICATION, . PT REFUSED TO BE DISCHARGED DUE TO ABD PAIN, , CM AND PM RN AWARE. IV ACCESS DISLODGED, WILL REINSERT. SAFETY MEASURES IN PLACE, CALL LIGHT, TABLE WITHIN REACH, ENDORSED TO PM SHIFT.
[2022-10-29] MEDS: IV D5/0.45 NACL 1,000 ML IV SCH (02:10)
[2022-10-29] MEDS: PIPERACILLIN /TAZOBACTAM 3.375 G in IV D5W 100 ML IV SCH ×2 (02:19→10:37)
[2022-10-29] MEDS: HYDROMORPHONE INJ 2 MG/ML DISP.SYRIN IV PRN (02:24)
[2022-10-29 06:13] LABS: CALCIUM, SERUM 7.7 mg/dL (8.5-10.1); CREATININE 0.9 mg/dL (0.6-1.3); POTASSIUM 3.3 mmol/L (3.5-5.1)
[2022-10-29] MEDS: METRONIDAZOLE 500 MG TABLET PO SCH ×2 (06:15→12:26)
--- NOTE | 2022-10-29 06:47 | NUR ---
RN closing notes Pt is resting in bed comfortably. Pt is alert and orientedX4. On room air. No SOB. No S/s of distress noted. VS is stable. afebrile. IV site at RAC# 20 is infusing well D5 1/2 NS @ 100 ml/hr. Routine meds were given as ordered including pain meds for pain management. Kept Pt clean, dry and comfortable. ambulates with a steady gait. Safety precautions is maintained. Fall precautions is maintained. Will endorse to am nurse for AGGIE.
[2022-10-29] MEDS: HYDROCODONE/APAP 5/325MG TABLET PO PRN ×2 (07:06→12:34)
[2022-10-29] MEDS: PANTOPRAZOLE 40 MG TABLET.DR PO SCH (07:06)
[2022-10-29] MEDS ORDERED: PANTOPRAZOLE 40 MG TABLET.DR PO SCH (07:30)
--- NOTE | 2022-10-29 07:30 | NUR ---
RN MS NOTES PT IN BED, ASLEEP, EASY TO AROUSE, ALERT AND ORIENTED, DENIES PAIN AT THIS TIME, RESPIRATIONS NORMAL, IV FLUIDS INFUSING WELL, CALL LIGHT WITHIN REACH, KEPT RISK CONSULTANT BED.
[2022-10-29] MEDS ORDERED: HYDROMORPHONE 1 MG/1 ML DISP.SYRIN IV PRN (08:30)
[2022-10-29] MEDS: FLUCONAZOLE (100 MG) 100 MG TABLET PO SCH (09:43)
[2022-10-29] MEDS ORDERED: POTASSIUM CHLORIDE 20 MEQ TAB.PRT.SR PO SCH (11:00)
--- NOTE | 2022-10-29 15:10 | NUR ---
RN MS NOTES PT AWAKE, ALERT AND ORIENTED, PAIN MEDS GIVEN ORDERED, PT ABLE TO AMBULATE TO THE BATHROOM WITH STEADY GAIT, SEEN BY DR. SMITH, DISCHARGE PLAN DISCUSSED WITH PT AND SIGNIFICANT OTHER, VERBALIZED UNDERSTANDING, DISCHARGE PLAN ALSO DISCUSSED BY ELVIN CALDERONMOTION STUDY TECHNICIAN NURSE, VERBALIZED UNDERSTANDING, BELONGINGS ACCOUNTED FOR, DISCHARGE PAPERS SIGNED, PT'S NEW PRESCRIPTION SENT ELECTRONICALLY TO PT'S PHARMACY OF CHOICE BY MD, DISCHARGE AND MEDICATION INSTRUCTIONS PROVIDED TO PT, VERBALIZED UNDERSTANDING, ASSISTED PT TO WHEELCHAIR, ACCOMPANIED BY AXLE TURNER TO HOSPITAL LOBBY, LEFT WITH SIGNIFICANT OTHER IN STABLE CONDITION.
== END 2022-10-29 14:57 | disposition home or self-care (01) | DRG 254 ==
LOC: ER 21:37 → TRANSITION 10-21 03:34 → MED 10-21 07:46 → TRANSITION 10-21 07:46 → MED 10-21 11:50
PROVIDERS: ADMIT Internal Medicine; ATTEND Nurse Practitioner Acute Care
PROC: 0DBN8ZX Excision of Sigmoid Colon, Via Natural or Artificial Opening Endoscopic, Diagnostic (ICD-10-PCS; principal; 2022-10-22)
DX: K63.1 Perforation of intestine (nontraumatic) (principal); E87.20 Acidosis, unspecified; R65.10 Systemic inflammatory response syndrome (SIRS) of non-infectious origin without acute organ dysfunction; K56.0 Paralytic ileus; K52.9 Noninfective gastroenteritis and colitis, unspecified; E87.6 Hypokalemia; D50.0 Iron deficiency anemia secondary to blood loss (chronic); D72.829 Elevated white blood cell count, unspecified; Z20.822 Contact with and (suspected) exposure to COVID-19
CPT/HCPCS: 36415; 45330; 74018; 80048-TC; 80076-TC; 83690-TC; 83735-TC; 84100-TC; 85025-TC; 85610-TC; 86850-TC; 87081-TC; 87491; 87591; 94799-TC; A4216; C9113; C9803; G0378; J1170; J1450; J2250; J2270; J2405; J2543; J2704; J3010; J3480; J3490; J7030; J7050; J7060; Q9967